=== PATIENT | male | born 2000 | race Caucasian/White ===

== ENCOUNTER 2018-05-10 17:09 | Emergency (ER) | payer BC ==
--- NOTE | 2018-05-10 17:48 | EDM.PDOC ---
ED HPI GENERAL MEDICAL PROBLEM - General Chief Complaint: Cardiovascular Problem Stated Complaint: DIZZINESS Time Seen by Provider: 05/10/18 17:25 Source of Information: Reports: Patient History Limitations: Reports: No Limitations - History of Present Illness INITIAL COMMENTS - FREE TEXT/NARRATIVE: Presents with his fiance. The patient reports that he had an incidence on Wednesday when got a little dizzy. Then again today he was driving and he got a little dizzy about a half hour prior to arrival. He has a Holter monitor in place from his primary care provider due to a history of occasional palpitations. The dizziness resolved on its own and was not accompanied by nausea, shortness of breath, chest pain or any other symptoms. The only reason he came to the emergency room was that he called his primary provider after the first incident and was told to come to the ER if it happened again. The Holter monitor is due for interrogation tomorrow. The patient is asymptomatic upon arrival. He is otherwise healthy without any chronic medical problems and takes no medications. He admits that he is an anxious person and his fiance concurs that he is "worried about absolutely everything". - Related Data Allergies Allergy/AdvReac Type Severity Reaction Status Date / Time Penicillins Allergy Hives Verified 05/10/18 17:20 Home Meds: Home Meds . [No Known Home Meds] 05/10/18 [History] Past Medical History HEENT History: Reports: None - Infectious Disease History Infectious Disease History: Reports: Chicken Pox Social & Family History - Tobacco Use Smoking Status *Q: Never Smoker - Recreational Drug Use Recreational Drug Use: No ED ROS GENERAL - Review of Systems Review Of Systems: ROS reveals no pertinent complaints other than HPI. GI/Abdominal: Denies: Black Stool, Bloody Stool ED EXAM, GENERAL - Physical Exam Exam: See Below Exam Limited By: No Limitations General Appearance: Alert, No Apparent Distress Ears: Normal External Exam Nose: Normal Inspection Throat/Mouth: Normal Inspection, Normal Oropharynx Head: Atraumatic, Normocephalic Neck: Normal Inspection Respiratory/Chest: No Respiratory Distress, Lungs Clear, Normal Breath Sounds Cardiovascular: Normal Peripheral Pulses, Regular Rate, Rhythm, No Edema, No Murmur GI/Abdominal: Soft, No Distention Extremities: Normal Inspection Neurological: Alert, Oriented, CN II-XII Intact, No Motor/Sensory Deficits Psychiatric: Normal Affect, Normal Mood Skin Exam: Warm, Dry, Intact, Normal Color, No Rash Lymphatic: No Adenopathy EKG INTERPRETATION Rhythm: NSR Course - Vital Signs Last Recorded V/S: Last Vital Signs Temp 36.9 C 05/10/18 17:21 Pulse 109 H 05/10/18 17:21 Resp 20 05/10/18 17:21 BP 159/101 H 05/10/18 17:21 Pulse Ox 100 05/10/18 17:21 - Orders/Labs/Meds Orders: Active Orders 24 hr Category Date Time Status EKG Documentation Completion [RC] STAT Care 05/10/18 17:20 Active COMPREHENSIVE METABOLIC PN,CMP [CHEM] Stat Lab 05/10/18 17:37 Ordered TROPONIN I [CHEM] Stat Lab 05/10/18 17:37 Ordered Departure - Departure Time of Disposition: 18:32 Disposition: Home, Self-Care 01 Condition: Good Clinical Impression: Dizziness Referrals: Andrea Rocha MD [Primary Care Provider] - Forms: ED Department Discharge Additional Instructions: 1. Follow up with Dr. Rocha as previously scheduled - My Orders Last 24 Hours: My Active Orders 05/10/18 17:37 COMPREHENSIVE METABOLIC PN,CMP [CHEM] Stat TROPONIN I [CHEM] Stat - Assessment/Plan Last 24 Hours: My Active Orders 05/10/18 17:37 COMPREHENSIVE METABOLIC PN,CMP [CHEM] Stat TROPONIN I [CHEM] Stat
[2018-05-10 18:27] LABS: CHLORIDE,CL 101 mmol/L (98-107); SODIUM,NA 139 mmol/L (136-148)
[2018-05-10] MEDS ORDERED: Ketorolac 60 MG/2 ML SDV IM ONE (18:45)
== END 2018-05-10 18:55 | disposition home or self-care (01) ==
LOC: MW.ED 17:09
DX: R42 Dizziness and giddiness (principal); Z88.0 Allergy status to penicillin
CPT/HCPCS: 36415; 80053; 84484; 93005; 99285-25

== ENCOUNTER 2018-05-13 14:21 | Emergency (ER) | payer BC ==
[2018-05-13] MEDS ORDERED: Sodium Chloride 0.9% 1,000 ML IV ONE (14:44)
[2018-05-13] MEDS ORDERED: Sodium Chloride 0.9% 10 ML Syringe FLUSH PRN (14:44)
[2018-05-13] MEDS ORDERED: Sodium Chloride 0.9% 2.5 ML Syringe FLUSH PRN (14:44)
--- NOTE | 2018-05-13 14:48 | EDM.PDOC ---
ED HPI GENERAL MEDICAL PROBLEM - General Chief Complaint: General Stated Complaint: DIZZY FAST HEART RATE Time Seen by Provider: 05/13/18 14:35 - History of Present Illness INITIAL COMMENTS - FREE TEXT/NARRATIVE: HISTORY AND PHYSICAL: History of present illness: The patient is a 18-year-old male who is following with Dr. Rocha at [facility] for palpitations and initially started seeing him the beginning of March and presents with intermittent palpitations and now dizziness and lightheadedness. The patient was seen here in our [facility] department on May 10 complaining that he was having dizzy episodes at that point he had a Holter monitor in place. He was briefly evaluated and is felt to be more nervous and anxious about his symptomatology and as his workup was in progress he was medically cleared and told to follow-up. The Holter was removed the following day and the patient says that he was told he would not get results for anywhere from 1-2 weeks. He says over the last 1 week he has been still having the palpitations on and off and now he is feeling more dizzy and lightheaded but he is not passing out or blacking out. He admits that he drinks a lot of caffeinated products but he has had no fevers chills chest pain shortness of breath abdominal pain nausea vomiting or diarrhea and has not had any neurosensory changes or weakness in his extremities. The patient says he called the clinic and was told that he should come here for evaluation. I attempted to contact the patient's provider in the clinic but did not get an answer. Review of systems: As per history of present illness and below otherwise all systems reviewed and negative. Past medical history: As per history of present illness and as reviewed below otherwise noncontributory. Surgical history: As per history of present illness and as reviewed below otherwise noncontributory. Social history: No reported history of drug or alcohol abuse. Family history: As per history of present illness and as reviewed below otherwise noncontributory. Physical exam: General: Well-developed well-nourished man who is nontoxic and seems somewhat anxious in the room and vital signs reviewed by me. HEENT: Atraumatic, normocephalic, pupils reactive, negative for conjunctival pallor or scleral icterus, mucous membranes moist, throat clear, neck supple, nontender, trachea midline. Lungs: Clear to auscultation, breath sounds equal bilaterally, chest nontender. Heart: S1S2, regular rhythm and slightly tachycardic rate on my evaluation in the 110s, no overt murmurs are appreciated, negative for clicks, rubs, Abdomen: Soft, nondistended, nontender. Negative for masses or hepatosplenomegaly. NABS Pelvis: Stable nontender. Genitourinary: Deferred. Rectal: Deferred. Extremities: Atraumatic, negative for cords or calf pain. Neurovascular unremarkable. No pedal edema or leg asymmetry Neuro: Awake, alert, oriented. Cranial nerves II through XII unremarkable. Cerebellum unremarkable. Motor and sensory unremarkable throughout. Exam nonfocal. Diagnostics: EKG CBC CMP d-dimer TSH troponin orthostatic vitals chest x-ray Therapeutics: IV monitor pulse ox IV fluids, Ativan On his orthostatic vitals the patient's blood pressure does not change but his heart rate does go up from lying to sitting to standing. He does tell the nurse that he does feel very anxious and nervous about his heart rate and getting the results for his Holter monitor. I discussed with the patient and his fianc at bedside all testing results and he does seem very nervous and anxious and she corroborates that he is very nervous and anxious his baseline but more so with these symptoms. I offered to give him a small dose of Ativan to see if this made him feel better in the temporary interim until he can get his Holter monitor results and he would like to try that. Strongly encouraged him to contact Dr. Rocha on Wednesday and try to get those testing results and see with the care plan is going forward. Patient says he is feeling more relaxed after the Ativan so I will give him a few tablets for home but have strongly encouraged him to follow-up with Dr. Rocha to get more information about his Holter monitor as discussed above. Impression: Palpitations, lightheadedness/dizziness, history of sinus tachycardia with workup in progress stable Definitive disposition and diagnosis as appropriate pending reevaluation and review of above. - Related Data Allergies Allergy/AdvReac Type Severity Reaction Status Date / Time Penicillins Allergy Hives Verified 05/10/18 17:20 Home Meds: Home Meds . [No Known Home Meds] 05/10/18 [History] Past Medical History HEENT History: Reports: None - Infectious Disease History Infectious Disease History: Reports: None Social & Family History - Family History Family Medical History: Noncontributory - Tobacco Use Smoking Status *Q: Never Smoker Second Hand Smoke Exposure: No - Caffeine Use Caffeine Use: Reports: Coffee - Recreational Drug Use Recreational Drug Use: No ED ROS GENERAL - Review of Systems Review Of Systems: ROS reveals no pertinent complaints other than HPI. ED EXAM, GENERAL - Physical Exam Exam: See Below (See dictation) Course - Vital Signs Last Recorded V/S: Last Vital Signs Temp 36.6 C 05/13/18 14:36 Pulse 122 H 05/13/18 14:36 Resp 20 05/13/18 14:36 BP 159/84 H 05/13/18 14:36 Pulse Ox 99 05/13/18 14:36 Orthostatic Blood Pressure [ 122/79 Standing] Orthostatic Blood Pressure [ 131/86 Sitting] Orthostatic Blood Pressure [ 127/82 Supine] - Orders/Labs/Meds Orders: Active Orders 24 hr Category Date Time Status Cardiac Monitoring [RC] . DIRECTED Care 05/13/18 14:43 Active EKG Documentation Completion [RC] STAT Care 05/13/18 14:43 Active Orthostatic Vital Signs [RC] ASDIRECTED Care 05/13/18 14:44 Active Pulse Oximetry [RC] ASDIRECTED Care 05/13/18 14:43 Active Sodium Chloride 0.9% [Saline Flush] Med 05/13/18 14:44 Active 10 ml FLUSH ASDIRECTED PRN Sodium Chloride 0.9% [Saline Flush] Med 05/13/18 14:44 Active 2.5 ml FLUSH ASDIRECTED PRN Saline Lock Insert [OM.PC] Stat Oth 05/13/18 14:43 Ordered Medication Orders Sodium Chloride (Saline Flush) 10 ml FLUSH ASDIRECTED PRN PRN Reason: Keep Vein Open Sodium Chloride (Saline Flush) 2.5 ml FLUSH ASDIRECTED PRN PRN Reason: Keep Vein Open Labs: Laboratory Tests 05/13/18 05/13/18 05/13/18 Range/Units 15:00 15:00 15:00 WBC 10.22 (4.0-11.0) K/uL RBC 5.41 (4.50-5.90) M/uL Hgb 16.1 (13.0-17.0) g/dL Hct 46.7 (38.0-50.0) % MCV 86.3 (80.0-98.0) fL MCH 29.8 (27.0-32.0) pg MCHC 34.5 (31.0-37.0) g/dL RDW Std Deviation 37.9 (28.0-62.0) fl RDW Coeff of Porsha 12 (11.0-15.0) % Plt Count 239 (150-400) K/uL MPV 10.90 (7.40-12.00) fL Neut % (Auto) 75.1 (48.0-80.0) % Lymph % (Auto) 18.3 (16.0-40.0) % Dewitt % (Auto) 6.0 (0.0-15.0) % Eos % (Auto) 0.4 (0.0-7.0) % Baso % (Auto) 0.2 (0.0-1.5) % Neut # (Auto) 7.7 H (1.4-5.7) K/uL Lymph # (Auto) 1.9 (0.6-2.4) K/uL Dewitt # (Auto) 0.6 (0.0-0.8) K/uL Eos # (Auto) 0.0 (0.0-0.7) K/uL Baso # (Auto) 0.0 (0.0-0.1) K/uL Nucleated RBC % 0.0 /100WBC Nucleated RBCs # 0 K/uL D-Dimer, Quantitative < 0.19 (0.0-0.50) mg/L FEU Sodium 138 (136-148) mmol/L Potassium 3.4 L (3.5-5.1) mmol/L Chloride 100 (98-107) mmol/L Carbon Dioxide 27.4 (21.0-32.0) mmol/L BUN 13 (7.0-18.0) mg/dL Creatinine 1.0 (0.8-1.3) mg/dL Est Cr Clr Drug Dosing TNP Estimated GFR (MDRD) > 60.0 ml/min Glucose 98 (74-106) mg/dL Calcium 9.4 (8.5-10.1) mg/dL Total Bilirubin 0.7 (0.2-1.0) mg/dL AST 17 (15-37) IU/L ALT 17 (14-63) IU/L Alkaline Phosphatase 81 (46-116) U/L Troponin I < 0.050 (0.000-0.056) ng/mL Total Protein 8.9 H (6.4-8.2) g/dL Albumin 4.9 (3.4-5.0) g/dL Globulin 4.0 (2.6-4.0) g/dL Albumin/Globulin Ratio 1.2 (0.9-1.6) TSH 3rd Generation 1.23 (0.36-3.74) uIU/mL Meds: Medications Generic Name Dose Route Start Last Admin Trade Name Freq PRN Reason Stop Dose Admin Sodium Chloride 10 ml 05/13/18 14:44 Saline Flush FLUSH ASDIRECTED PRN Keep Vein Open Sodium Chloride 2.5 ml 05/13/18 14:44 Saline Flush FLUSH ASDIRECTED PRN Keep Vein Open Discontinued Medications Generic Name Dose Route Start Last Admin Trade Name Freq PRN Reason Stop Dose Admin Sodium Chloride 1,000 mls @ 999 mls/hr 05/13/18 14:44 05/13/18 15:00 Normal Saline IV 05/13/18 15:44 999 mls/hr STAT ONE Administration Lorazepam 0.5 mg 05/13/18 15:59 05/13/18 16:05 Ativan IVPUSH 05/13/18 16:00 0.5 mg ONETIME ONE Administration Departure - Departure Time of Disposition: 17:06 Disposition: Home, Self-Care 01 Condition: Good Clinical Impression: Sinus tachycardia, Palpitations - Discharge Information Referrals: PCP,Unknown [Primary Care Provider] - Forms: ED Department Discharge Additional Instructions: The following information is given to patients seen in the emergency department who are being discharged to home. This information is to outline your options for follow-up care. We provide all patients seen in our emergency department with a follow-up referral. The need for follow-up, as well as the timing and circumstances, are variable depending upon the specifics of your emergency department visit. If you don't have a primary care physician on staff, we will provide you with a referral. We always advise you to contact your personal physician following an emergency department visit to inform them of the circumstance of the visit and for follow-up with them and/or the need for any referrals to a consulting specialist. The emergency department will also refer you to a specialist when appropriate. This referral assures that you have the opportunity for followup care with a specialist. All of these measure are taken in an effort to provide you with optimal care, which includes your followup. Under all circumstances we always encourage you to contact your private physician who remains a resource for coordinating your care. When calling for followup care, please make the office aware that this follow-up is from your recent emergency room visit. If for any reason you are refused follow-up, please contact the [facility] emergency department at and ask to speak to the emergency department charge nurse. [address] [place] [address] Push hydration and avoid caffeinated products as we discussed. Please contact Dr. Rocha on Wednesday morning to try to get results from your Holter test and discuss with him further care plan. Use prescription given to you today as needed but only take those medications when you're at home. Return to ER as needed and as discussed - My Orders Last 24 Hours: My Active Orders 05/13/18 14:43 Cardiac Monitoring [RC] . DIRECTED EKG Documentation Completion [RC] STAT Pulse Oximetry [RC] ASDIRECTED Saline Lock Insert [OM.PC] Stat 05/13/18 14:44 Orthostatic Vital Signs [RC] ASDIRECTED Sodium Chloride 0.9% [Saline Flush] 10 ml FLUSH ASDIRECTED PRN Sodium Chloride 0.9% [Saline Flush] 2.5 ml FLUSH ASDIRECTED PRN - Assessment/Plan Last 24 Hours: My Active Orders 05/13/18 14:43 Cardiac Monitoring [RC] . DIRECTED EKG Documentation Completion [RC] STAT Pulse Oximetry [RC] ASDIRECTED Saline Lock Insert [OM.PC] Stat 05/13/18 14:44 Orthostatic Vital Signs [RC] ASDIRECTED Sodium Chloride 0.9% [Saline Flush] 10 ml FLUSH ASDIRECTED PRN Sodium Chloride 0.9% [Saline Flush] 2.5 ml FLUSH ASDIRECTED PRN
[2018-05-13 15:39] LABS: CHLORIDE,CL 100 mmol/L (98-107); SODIUM,NA 138 mmol/L (136-148)
--- NOTE | 2018-05-13 15:45 | CR ---
EXAMINATION: PA chest radiograph. HISTORY: Shortness of breath. FINDINGS: The trachea is midline. The cardiomediastinal silhouette is within normal limits. No pulmonary infiltrates, effusions or pneumothorax. Osseous structures appear unremarkable. IMPRESSION: No acute cardiopulmonary process.
[2018-05-13] MEDS ORDERED: LORazepam 2 MG/ML SDV IVPUSH ONE (15:59)
== END 2018-05-13 17:23 | disposition home or self-care (01) ==
LOC: MW.ED 14:21
DX: R00.2 Palpitations (principal); R00.0 Tachycardia, unspecified; Z88.0 Allergy status to penicillin
CPT/HCPCS: 36415; 71045; 80053; 84443; 84484; 85025; 85379; 93005; 96361; 96374; 99285; J2060; J7040; 99284